=== PATIENT | male | born 1970 | race Caucasian/White ===

== ENCOUNTER 2024-07-01 13:18 | Emergency (ER) | payer BC ==
[~2024-07-01] VITALS: Ht 190.5 cm; Wt 122.0 kg
[2024-07-01] MEDS ORDERED: KETOROLAC TROMETHAMINE 15 MG/ML VIAL IV ONE (13:45)
[2024-07-01] MEDS ORDERED: ondansetron HCL 4 MG/2 ML VIAL IV PRN (13:45)
[2024-07-01 13:52] LABS: BASOPHILS 0.9 % (0-2); EOSINOPHILS 0.4 % (0-6); HEMATOCRIT 37.1 % (35.0-50.0); LYMPHOCYTES 8.6 % (24-44); MCV 91.3 fl (81-99); MONOCYTES 8.8 % (0-12); NEUTROPHILS 81.3 % (39-80); PLATELET COUNT 251 K/uL (140-440); RBC 4.06 M/ul (4.3-5.7); RDW 13.4 (10.5-15.0)
[2024-07-01] MEDS ORDERED: LOSARTAN POTAS100 MG PO (13:54)
[2024-07-01] MEDS ORDERED: TRIAMTERENE-HC1 EAC3 PO (13:54)
[2024-07-01] MEDS ORDERED: AMANTADINE100 M1 PO (13:55)
[2024-07-01] MEDS ORDERED: ROSUVASTATIN CAL5 MG PO (13:55)
[2024-07-01] MEDS ORDERED: OMEPRAZOLE20 MG PO (13:56)
[2024-07-01] MEDS ORDERED: PROBIOTIC1 EAC3 PO (13:56)
[2024-07-01] MEDS ORDERED: B COMPLEX1 EACH PO (13:57)
[2024-07-01] MEDS ORDERED: FISH OIL 1,0001 EAC6 PO (13:58)
[2024-07-01] MEDS ORDERED: [UNRECOGNIZED DRUG - OTHER] IV (14:03)
[2024-07-01 14:09] LABS: ALBUMIN/GLOBULIN RATIO 1.38 (1.1-2.4); ANION GAP 14.6 (7-21); BILIRUBIN, TOTAL 0.9 ng/dL (0.2-1.0); BUN/CREATININE RATIO 11.59 (6.0-28.6); CALCIUM 9.5 mg/dL (8.5-10.1); CREATININE, SERUM 2.07 mg/dL (0.70-1.30); POTASSIUM 3.6 mmol/L (3.5-5.1); PROTEIN, TOTAL 6.9 g/dL (6.4-8.2)
[2024-07-01] MEDS ORDERED: SODIUM CHLORIDE 0.9% 1,000 ML IV PRN (15:15)
[2024-07-01 16:15] LABS: BILIRUBIN, URINE NEGATIVE (negative); BLOOD/HGB, URINE MODERATE (Negative); KETONE, URINE NEGATIVE (Negative); LEUK ESTERASE, URINE NEGATIVE (negative); NITRITE, URINE NEGATIVE (negative)
[2024-07-01 16:25] LABS: BACTERIA, URINE RARE /hpf (negative); CASTS, URINE GRANULAR 2+ \\lpf; COLLECTION TYPE, URINE CLEAN CATCH; CRYSTALS, URINE NONE SEEN (0-1+); EPITHELIAL CELLS, URINE SQUAMOUS 1+ /lpf (0-1+); RED BLOOD CELLS, URINE >50 /hpf (0-5); REFLEX CULTURE, URINE No (No)
[2024-07-01] MEDS ORDERED: TAMSULOSIN HCL 0.4 MG CAP PO ONE (16:45)
[2024-07-01] MEDS ORDERED: HYDROCODONE/ACETA 7.5/325 TAB PO ONE (16:45)
[2024-07-01] MEDS ORDERED: ONDANSETRON ODT8 MG PO (19:18)
[2024-07-01] MEDS ORDERED: FLOMAX0.4 MG PO (19:18)
[2024-07-01] MEDS ORDERED: HYDROCODON-ACE1 EA11 PO (19:18)
[2024-07-01] MEDS ORDERED: HYDROCODONE BIT/ACETAMINOPHEN 5/325 MG 1 TAB HOME.PACK PO ONE (19:30)
[2024-07-01 19:34] VITALS: BP 128/85
== END 2024-07-01 19:32 | disposition home or self-care (01) ==
LOC: ED 13:18
PROVIDERS: Emergency Medicine
DX: N13.2 Hydronephrosis with renal and ureteral calculous obstruction (principal); Z79.899 Other long term (current) drug therapy; Z88.5 Allergy status to narcotic agent; Z88.8 Allergy status to other drugs, medicaments and biological substances
CPT/HCPCS: 36415; 74177; 76775; 80053; 81001; 85025; 96375; 99284-25; A9270; J1885; J2405; J7030; Q9967